=== PATIENT | male | born 1945 | race Caucasian/White ===

== ENCOUNTER 2017-06-15 10:13 | Emergency (ER) | payer OTHER ==
--- NOTE | 2017-06-15 10:54 | EDM.PDOC ---
ED HPI GENERAL MEDICAL PROBLEM - General Chief Complaint: General Stated Complaint: TEMP/WEAKNESS/FALL Time Seen by Provider: 06/15/17 10:40 Source of Information: Reports: Patient, Family, Old Records, RN History Limitations: Reports: No Limitations - History of Present Illness INITIAL COMMENTS - FREE TEXT/NARRATIVE: 71 yo male on home peritoneal dialysis recently developed a cough and fever. Fever was 102F this morning, then he broke a sweat and it went away. Cough is minimally productive. He feels weak. Fell at home today with minimal injury. Here with his . 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 (see below) (none) - Related Data Allergies Allergy/AdvReac Type Severity Reaction Status Date / Time No Known Allergies Allergy Verified 06/15/17 10:35 Home Meds: Home Meds Cholecalciferol (Vitamin D3) [Vitamin D3] 1,000 unit PO DAILY 06/20/15 [History] Furosemide 80 mg PO TID 06/20/15 [History] Gabapentin [Neurontin] 300 mg PO BEDTIME 06/20/15 [History] Insulin Glarg,Human.Rec.Analog [LantUS Solostar] 60 unit SUBCUT BEDTIME [History] Insulin Glargine,Hum.Rec.Anlog [Lantus Solostar] 60 unit SQ ACBREAKFAST [History] Omeprazole 20 mg PO BEDTIME 06/20/15 [History] Sevelamer Carbonate [Renvela] 800 mg PO TID 06/20/15 [History] atorvaSTATin Calcium [Atorvastatin Calcium] 40 mg PO BEDTIME 06/20/15 [History] Aspirin [Adult Low Dose Aspirin EC] 1 tab PO DAILY 06/04/17 [History] Calcitriol 1 cap PO ASDIRECTED 06/04/17 [History] Docusate Sodium 1 cap PO BID PRN 06/04/17 [History] Dorzolamide [Trusopt 2% Ophth Soln] 1 drop EYERT BID 06/04/17 [History] Folic Acid/Vit Bcomp,C [Renal Vitamin Tablet] 1 cap PO DAILY 06/04/17 [History] Gentamicin [Gentamicin 0.1%] 1 appful ASDIRECTED 06/04/17 [History] Latanoprost [Xalatan 0.005% Ophth Soln] 1 drop EYERT DAILY 06/04/17 [History] Levothyroxine [Synthroid] 1 tab PO DAILY 06/04/17 [History] Magnesium Oxide 1 tab PO DAILY 06/04/17 [History] Metolazone 5 mg PO DAILY 06/04/17 [History] Timolol Maleate [Timoptic 0.5% Ophth Soln] 1 drop EYERT BID 06/04/17 [History] Past Medical History HEENT History: Reports: Cataract Cardiovascular History: Reports: Bypass, CAD, High Cholesterol, [place] Gastrointestinal History: Reports: GERD Genitourinary History: Reports: Renal Disease, Other (See Below) Other Genitourinary History: end stage renal disease Musculoskeletal History: Reports: Arthritis, Back Pain, Chronic Endocrine/Metabolic History: Reports: Diabetes, Type II Hematologic History: Reports: Anemia, Blood Transfusion(s) Oncologic (Cancer) History: Reports: Prostate - Infectious Disease History Infectious Disease History: Reports: Chicken Pox, Measles, Mumps - Past Surgical History HEENT Surgical History: Reports: Cataract Surgery Cardiovascular Surgical History: Reports: Vascular Surgery Social & Family History - Tobacco Use Smoking Status *Q: Former Smoker Used Tobacco, but Quit: Yes Month Tobacco Last Used: 28 years ago he quit - Caffeine Use Caffeine Use: Reports: Coffee, Soda, Tea - Alcohol Use Days Per Week of Alcohol Use: 1 Number of Drinks Per Day: 2 Total Drinks Per Week: 2 - Recreational Drug Use Recreational Drug Use: No ED ROS GENERAL - Review of Systems Review Of Systems: See Below Constitutional: Reports: Fever, Chills, Malaise, Weakness, Diaphoresis (now resolved) HEENT: Reports: No Symptoms Respiratory: Reports: Shortness of Breath, Cough, Sputum (minimal). Denies: Hemoptysis Cardiovascular: Reports: Lightheadedness Endocrine: Reports: No Symptoms GI/Abdominal: Reports: No Symptoms : Reports: No Symptoms Musculoskeletal: Reports: No Symptoms Skin: Reports: No Symptoms Neurological: Reports: No Symptoms Psychiatric: Reports: No Symptoms ED EXAM, GENERAL - Physical Exam Exam: See Below Exam Limited By: No Limitations General Appearance: Alert, WD/WN, No Apparent Distress, Obese Eye Exam: Bilateral Eye: Normal Inspection Ears: Normal External Exam, Normal Canal, Hearing Grossly Normal, Normal TMs Ear Exam: Bilateral Ear: Auricle Normal, Canal Normal Nose: Normal Inspection, Normal Mucosa, No Blood Throat/Mouth: Normal Inspection, Normal Lips, Normal Oropharynx, Normal Voice, No Airway Compromise Head: Atraumatic, Normocephalic Neck: Normal Inspection, Supple Respiratory/Chest: No Respiratory Distress, Lungs Clear, Decreased Breath Sounds (on left), Other (has a very weak cough) Cardiovascular: Regular Rate, Rhythm, No Edema GI/Abdominal: Normal Bowel Sounds, Soft, Non-Tender, Other (peritoneal dialysis catheter present.) Back Exam: Normal Inspection. No: CVA Tenderness (R), CVA Tenderness (L) Extremities: Normal Inspection, Non-Tender Neurological: Alert, Oriented, CN II-XII Intact, Normal Cognition, No Motor/ Sensory Deficits Psychiatric: Normal Affect, Normal Mood Skin Exam: Warm, Dry, Intact, Other (abscess L medial buttocks, not fluctuant) Course - Vital Signs Text/Narrative:: Discussed admission vs. outpatient management, wants to go home. Has a walker to use now that he is weaker. Last Recorded V/S: Last Vital Signs Temp 36.7 C 06/15/17 10:38 Pulse 90 06/15/17 10:38 Resp 18 06/15/17 10:38 BP 106/46 L 06/15/17 10:38 Pulse Ox 94 L 06/15/17 10:38 - Orders/Labs/Meds Orders: Active Orders 24 hr Category Date Time Status Chest 2V [CR] Stat Exams 06/15/17 10:47 Ordered Labs: Laboratory Tests 06/15/17 06/15/17 Range/Units 10:56 10:56 WBC 12.3 H (4.5-11.0) K/uL RBC 3.39 L (4.30-5.90) M/uL Hgb 10.8 L (12.0-15.0) g/dL Hct 33.4 L (40.0-54.0) % MCV 99 H (80-98) fL MCH 32 H (27-31) pg MCHC 32 (32-36) % Plt Count 270 (150-400) K/uL Sodium 138 L (140-148) mmol/L Potassium 4.0 (3.6-5.2) mmol/L Chloride 98 L (100-108) mmol/L Carbon Dioxide 24 (21-32) mmol/L Anion Gap 20.0 H (5.0-14.0) mmol/L BUN 52 H (7-18) mg/dL Creatinine 8.3 H* (0.8-1.3) mg/dL Est Cr Clr Drug Dosing 8.83 mL/min Estimated GFR (MDRD) 6 L (>60) Glucose 168 H (74-106) mg/dL Calcium 9.1 D (8.5-10.1) mg/dL - Radiology Interpretation Free Text/Narrative:: CXR-chronic interstitial changes, poor inspiration Departure - Departure Time of Disposition: 11:43 Disposition: Home, Self-Care 01 Condition: Fair Clinical Impression: Respiratory infection, Weakness, Abscess of buttock, left - Discharge Information Referrals: PCP,None [Primary Care Provider] - Forms: ED Department Discharge - My Orders Last 24 Hours: My Active Orders 06/15/17 10:47 Chest 2V [CR] Stat - Assessment/Plan Last 24 Hours: My Active Orders 06/15/17 10:47 Chest 2V [CR] Stat
[2017-06-15 11:00] VITALS: BP 106/46
--- NOTE | 2017-06-17 09:58 | CR ---
Chest 2V INDICATION: cough, fever FINDINGS: Comparison 04/27/2012. New sternotomy. Chronic interstitial changes in the right upper lung is similar to prior exam. No definitive new focal consolidation. If clinical symptoms persist, consid er follow-up PA and lateral chest x-ray.
== END 2017-06-15 11:50 | disposition home or self-care (01) ==
LOC: JP.ED 10:13
DX: J98.8 Other specified respiratory disorders (principal); L02.31 Cutaneous abscess of buttock; R53.1 Weakness; I12.0 Hypertensive chronic kidney disease with stage 5 chronic kidney disease or end stage renal disease; E11.22 Type 2 diabetes mellitus with diabetic chronic kidney disease; N18.6 End stage renal disease; Z99.2 Dependence on renal dialysis; I25.10 Atherosclerotic heart disease of native coronary artery without angina pectoris; E78.00 Pure hypercholesterolemia, unspecified; K21.9 Gastro-esophageal reflux disease without esophagitis; Z87.891 Personal history of nicotine dependence; Z79.4 Long term (current) use of insulin; Z79.82 Long term (current) use of aspirin; Z79.899 Other long term (current) drug therapy
CPT/HCPCS: 36415; 71046; 71046-26; 80048; 85027; 87804; 87807; 99283; 99285

== ENCOUNTER 2017-07-12 15:39 | Emergency (ER) | payer OTHER ==
[2017-07-12] MEDS ORDERED: Sodium Chloride 0.9% 1,000 ML IV SCH (16:00)
--- NOTE | 2017-07-12 16:03 | EDM.PDOC ---
ED HPI GENERAL MEDICAL PROBLEM - General Chief Complaint: Syncope Stated Complaint: ILLNESS Time Seen by Provider: 07/12/17 16:00 Source of Information: Reports: Patient, Family History Limitations: Reports: No Limitations - History of Present Illness INITIAL COMMENTS - FREE TEXT/NARRATIVE: pt was in dialysis today and he was at 3 hours. He told them not to go the extra 1/2 hour and that he could only tolerate 3 hours. They allowed him to stand up while he was still on dialysis and he had a near syncopal episode. Onset: Today Duration: Hour(s): Location: Reports: Head Associated Symptoms: Reports: Syncope - Related Data Allergies Allergy/AdvReac Type Severity Reaction Status Date / Time No Known Allergies Allergy Verified 06/15/17 10:35 Home Meds: Home Meds Cholecalciferol (Vitamin D3) [Vitamin D3] 1,000 unit PO DAILY 06/20/15 [History] Furosemide 80 mg PO TID 06/20/15 [History] Gabapentin [Neurontin] 300 mg PO BEDTIME 06/20/15 [History] Insulin Glarg,Human.Rec.Analog [LantUS Solostar] 60 unit SUBCUT BEDTIME [History] Insulin Glargine,Hum.Rec.Anlog [Lantus Solostar] 60 unit SQ ACBREAKFAST [History] Omeprazole 20 mg PO BEDTIME 06/20/15 [History] Sevelamer Carbonate [Renvela] 800 mg PO TID 06/20/15 [History] atorvaSTATin Calcium [Atorvastatin Calcium] 40 mg PO BEDTIME 06/20/15 [History] Aspirin [Adult Low Dose Aspirin EC] 1 tab PO DAILY 06/04/17 [History] Calcitriol 1 cap PO ASDIRECTED 06/04/17 [History] Docusate Sodium 1 cap PO BID PRN 06/04/17 [History] Dorzolamide [Trusopt 2% Ophth Soln] 1 drop EYERT BID 06/04/17 [History] Folic Acid/Vit Bcomp,C [Renal Vitamin Tablet] 1 cap PO DAILY 06/04/17 [History] Gentamicin [Gentamicin 0.1%] 1 appful ASDIRECTED 06/04/17 [History] Latanoprost [Xalatan 0.005% Ophth Soln] 1 drop EYERT DAILY 06/04/17 [History] Levothyroxine [Synthroid] 1 tab PO DAILY 06/04/17 [History] Magnesium Oxide 1 tab PO DAILY 06/04/17 [History] Metolazone 5 mg PO DAILY 06/04/17 [History] Timolol Maleate [Timoptic 0.5% Ophth Soln] 1 drop EYERT BID 06/04/17 [History] Past Medical History HEENT History: Reports: Cataract Cardiovascular History: Reports: Bypass, CAD, High Cholesterol, [place] Gastrointestinal History: Reports: GERD Genitourinary History: Reports: Renal Disease, Other (See Below) Other Genitourinary History: end stage renal disease Musculoskeletal History: Reports: Arthritis, Back Pain, Chronic Endocrine/Metabolic History: Reports: Diabetes, Type II Hematologic History: Reports: Anemia, Blood Transfusion(s) Oncologic (Cancer) History: Reports: Prostate - Infectious Disease History Infectious Disease History: Reports: Chicken Pox, Measles, Mumps - Past Surgical History HEENT Surgical History: Reports: Cataract Surgery Cardiovascular Surgical History: Reports: Vascular Surgery Social & Family History - Tobacco Use Smoking Status *Q: Former Smoker Used Tobacco, but Quit: Yes Month Tobacco Last Used: 28 years ago he quit - Caffeine Use Caffeine Use: Reports: Coffee, Soda, Tea - Alcohol Use Days Per Week of Alcohol Use: 1 Number of Drinks Per Day: 2 Total Drinks Per Week: 2 - Recreational Drug Use Recreational Drug Use: No ED ROS GENERAL - Review of Systems Review Of Systems: See Below Constitutional: Reports: Weakness, Other (NEAR SYNCOPE DURING DIALYSIS. hE HAD GOOD VITAL SIGNS ON ARRIVAL. ) HEENT: Reports: No Symptoms Respiratory: Reports: No Symptoms Cardiovascular: Reports: No Symptoms Endocrine: Reports: No Symptoms GI/Abdominal: Reports: No Symptoms : Reports: No Symptoms Musculoskeletal: Reports: No Symptoms Skin: Reports: No Symptoms Neurological: Reports: Syncope Psychiatric: Reports: No Symptoms ED EXAM, DIZZINESS - Physical Exam Exam: See Below Text/Narrative:: pT ARRIVED WITH GOOD VITAL SIGNS FROM DIALYSIS. hE WAS ALERT ORIENTED AND NOT DIAOHRETIC. hE REFUSED AN iV AT THIS POINT AND HE DID DRINK ABOUT 4 BOTTLES OF WATER-- THE SMALLER BOTTLES. Exam Limited By: No Limitations General Appearance: Alert, No Apparent Distress, Anxious, Other (PUPILS ARE EQUAL AND REACTIVE. ) Ears: Normal External Exam, Normal TMs Nose: Normal Inspection Throat/Mouth: Normal Inspection Head Exam: Atraumatic Neck: Normal Inspection Respiratory/Chest: No Respiratory Distress Cardiovascular: Regular Rate, Rhythm GI/Abdominal: Soft, Non-Tender (Male) Exam: Deferred Rectal (Males) Exam: Deferred Neurological: Alert, Oriented x 3 Back Exam: Normal Inspection Extremities: Normal Inspection Psychiatric: Normal Affect Course - Vital Signs Last Recorded V/S: Last Vital Signs Temp 36.4 C 07/12/17 16:02 Pulse 89 07/12/17 17:01 Resp 16 07/12/17 16:02 BP 114/50 L 07/12/17 17:01 Pulse Ox 99 07/12/17 17:01 - Orders/Labs/Meds Labs: Laboratory Tests 07/12/17 07/12/17 07/12/17 Range/Units 15:50 15:50 16:34 WBC 10.5 (4.5-11.0) K/uL RBC 3.34 L (4.30-5.90) M/uL Hgb 10.9 L (12.0-15.0) g/dL Hct 34.0 L (40.0-54.0) % MCV 102 H (80-98) fL MCH 33 H (27-31) pg MCHC 32 (32-36) % Plt Count 344 (150-400) K/uL Neut % (Auto) 72 H (36-66) % Lymph % (Auto) 15 L (24-44) % [place] % (Auto) 10 H (2-6) % Eos % (Auto) 2 (2-4) % Baso % (Auto) 1 (0-1) % Sodium 133 L (140-148) mmol/L Potassium 4.0 (3.6-5.2) mmol/L Chloride 95 L (100-108) mmol/L Carbon Dioxide 28 (21-32) mmol/L Anion Gap 14.0 (5.0-14.0) mmol/L BUN 27 H (7-18) mg/dL Creatinine 5.7 H* (0.8-1.3) mg/dL Est Cr Clr Drug Dosing 12.86 mL/min Estimated GFR (MDRD) 10 L (>60) Glucose 149 H (74-106) mg/dL Calcium 9.4 (8.5-10.1) mg/dL Total Bilirubin 0.5 D (0.2-1.0) mg/dL AST 17 (15-37) U/L ALT 24 (12-78) U/L Alkaline Phosphatase 98 (46-116) U/L Total Protein 8.3 H (6.4-8.2) g/dL Albumin 2.9 L (3.4-5.0) g/dL Globulin 5.4 H (2.3-3.5) g/dL Albumin/Globulin Ratio 0.5 L (1.2-2.2) Urine Color Red Urine Appearance Cloudy Urine pH 7.0 (4.5-8.0) Ur Specific [place] 1.015 (1.008-1.030) Urine Protein 500 H (NEGATIVE) mg/dL Urine Glucose (UA) 100 H (NEGATIVE) mg/dL Urine Ketones Negative (NEGATIVE) mg/dL Urine Occult Blood Large (NEGATIVE) Urine Nitrite Negative (NEGAITVE) Urine Bilirubin Small (NEGATIVE) Urine Urobilinogen Normal (NORMAL) mg/dL Ur Leukocyte Esterase Moderate (NEGATIVE) Urine RBC Semi-packed H (0-5) Urine WBC Semi-packed H (0-5) Ur Epithelial Cells Moderate Amorphous Sediment Not seen Urine Bacteria Many Urine Mucus Not seen Urine Other Meds: Medications Discontinued Medications Generic Name Dose Route Start Last Admin Trade Name Freq PRN Reason Stop Dose Admin Ceftriaxone Sodium 1 gm/ 0 gm 07/12/17 17:43 07/12/17 18:17 Lidocaine HCl 2.1 ml IM 07/12/17 17:44 1 inj ONETIME ONE Administration Sodium Chloride 1,000 mls @ 250 mls/hr 07/12/17 16:00 Normal Saline IV ASDIRECTED [facility] - Re-Assessments/Exams Free Text/Narrative Re-Assessment/Exam: 07/20/17 10:51 pT GAVE THE HISTORY OF HAVING HEMATURIA. hE HAD BEEN IN THE HOSP RECENTLY AND HAD A CATHETER. hIS URINE DOES LOOK INFECTED AND HE WILL BE CULTURED. hIS LAB WORK OTHERWISE LOOKS GOOD. Departure - Departure Time of Disposition: 17:44 Disposition: Home, Self-Care 01 Condition: Fair Clinical Impression: Near syncope, UTI (urinary tract infection) - Discharge Information Instructions: Near-Syncope, [id number], Urinary Tract Infection, Adult Referrals: PCP,None [Primary Care Provider] - Forms: ED Department Discharge Care Plan Goals: encourage fluids tonite, will notify of urine culture. cipro 500mg 250 bid for 2 days and then 1 tab daily.
[2017-07-12 17:02] VITALS: BP 114/50
[2017-07-12] MEDS ORDERED: cefTRIAXone 1 GM, Lidocaine 1% 2.1 ML IM ONE ×2 (17:43)
== END 2017-07-12 18:17 | disposition home or self-care (01) ==
LOC: JP.ED 15:39
DX: R55 Syncope and collapse (principal); N39.0 Urinary tract infection, site not specified; E11.22 Type 2 diabetes mellitus with diabetic chronic kidney disease; N18.6 End stage renal disease; I25.2 Old myocardial infarction; E78.00 Pure hypercholesterolemia, unspecified; I25.10 Atherosclerotic heart disease of native coronary artery without angina pectoris; K21.9 Gastro-esophageal reflux disease without esophagitis; Z79.4 Long term (current) use of insulin; Z79.82 Long term (current) use of aspirin; Z79.899 Other long term (current) drug therapy; Z87.891 Personal history of nicotine dependence
CPT/HCPCS: 36415; 80053; 81001; 85025; 87086; 87088; 87186; 99283; 99284; J0696